=== PATIENT | female | born 1995 | race Caucasian/White ===

== ENCOUNTER 2019-08-12 17:21 | Emergency (ER) | payer BC ==
[2019-08-12] MEDS ORDERED: Ketorolac 60 MG/2 ML SDV IM ONE (18:08)
[2019-08-12] MEDS ORDERED: Cyclobenzaprine 10 MG Tab PO ONE (18:08)
--- NOTE | 2019-08-12 18:13 | EDM.PDOC ---
ED HPI GENERAL MEDICAL PROBLEM - General Chief Complaint: Back Pain or Injury Stated Complaint: LOWER BACK PAIN Time Seen by Provider: 08/12/19 17:58 Source of Information: Reports: Patient History Limitations: Reports: No Limitations - History of Present Illness INITIAL COMMENTS - FREE TEXT/NARRATIVE: Patient is a 23-year-old female who presents with acute low back pain. She states that she was lifting weights. She had squatted down to begin to lift up the bar when she felt a sharp stabbing pain in her right lower back. She was not actively lifting at the time of the injury. She denies any radiation of pain down her legs. Denies any bowel or bladder dysfunction. She states she has had injury similar to this in the past and was told that her "disc was overlapping her tailbone ". She states that she was told that if the injury should occur again, she would need surgery. Right Lower Back Pain Score (Numeric/FACES): 10 - Related Data Allergies Allergy/AdvReac Type Severity Reaction Status Date / Time No Known Allergies Allergy Verified 08/12/19 17:31 Home Meds: Home Meds Cyclobenzaprine [Flexeril] 5 mg PO TID PRN #15 tab 08/12/19 [Rx] Naproxen [Naprosyn] 500 mg PO Q12HR #10 tab 08/12/19 [Rx] Past Medical History - Past Health History Medical/Surgical History: Denies Medical/Surgical History Social & Family History - Tobacco Use Smoking Status *Q: Never Smoker - Caffeine Use Caffeine Use: Reports: None ED ROS GENERAL - Review of Systems Review Of Systems: Comprehensive ROS is negative, except as noted in HPI. ED EXAM,LOWER BACK PAIN/INJURY - Physical Exam Exam: See Below Exam Limited By: No Limitations General Appearance: Alert, WD/WN, No Apparent Distress Respiratory/Chest: No Respiratory Distress, Lungs Clear, Normal Breath Sounds, No Accessory Muscle Use, Chest Non-Tender Cardiovascular: Normal Peripheral Pulses, Regular Rate, Rhythm, No Edema, No Gallop, No JVD, No Murmur, No Rub Back Exam: Normal Inspection, Paraspinal Tenderness (Right lateral of L3-L5), Vertebral Tenderness (L3-L5) Neurological: Alert, Normal Mood/Affect, Normal Dorsiflexion, CN II-XII Intact, Normal Plantar Flexion, Normal Gait, Normal Reflexes, No Motor/Sensory Deficits , Oriented x 3 Psychiatric: Normal Affect, Normal Mood Skin Exam: Warm, Dry, Intact, Normal Color, No Rash Course - Vital Signs Last Recorded V/S: Last Vital Signs Temp 98.2 F 08/12/19 17:28 Pulse 103 H 08/12/19 17:28 Resp 20 08/12/19 17:28 BP 158/97 H 08/12/19 17:28 Pulse Ox 98 08/12/19 17:28 - Orders/Labs/Meds Meds: Medications Discontinued Medications Generic Name Dose Route Start Last Admin Trade Name Freq PRN Reason Stop Dose Admin Cyclobenzaprine HCl 10 mg 08/12/19 18:08 08/12/19 18:13 Flexeril PO 08/12/19 18:09 10 mg ONETIME ONE Administration Ketorolac Tromethamine 60 mg 08/12/19 18:08 08/12/19 18:13 Toradol IM 08/12/19 18:09 60 mg ONETIME ONE Administration - Re-Assessments/Exams Free Text/Narrative Re-Assessment/Exam: 08/12/19 18:14 I have ordered x-rays of the lumbar spine. Patient has not taken anything for pain thus far today. We will give her Toradol 60 mg IM as well as Flexeril. 08/12/19 19:58 Patient had significant relief of symptoms after the Toradol and Flexeril. X- rays were negative for any acute abnormalities. We will discharge her home with a prescription for Naprosyn and Flexeril. Recommend that if her pain is not improving by the end of the week that she follow-up in the clinic to discuss an outpatient MRI. Discharge instructions as documented. Departure - Departure Time of Disposition: 19:59 Disposition: Home, Self-Care 01 Condition: Good Clinical Impression: Lumbar strain Qualifiers: Encounter type: initial encounter Qualified Code(s): S39.012A - Strain of muscle, fascia and tendon of lower back, initial encounter - Discharge Information *PRESCRIPTION DRUG MONITORING PROGRAM REVIEWED*: No *COPY OF PRESCRIPTION DRUG MONITORING REPORT IN PATIENT YVONNE: No Prescriptions: Naproxen [Naprosyn] 500 mg PO Q12HR #10 tab Cyclobenzaprine [Flexeril] 5 mg PO TID PRN #15 tab PRN Reason: Muscle Spasm Instructions: Lumbosacral Strain Referrals: Jane Mejia PA-C [Primary Care Provider] - Forms: ED Department Discharge Additional Instructions: Was seen in the emergency department today for low back pain that occurred while lifting weights. X-rays were completed of your spine and found to be negative for any fractures or other abnormalities. While in the ER you received a dose of Toradol and Flexeril which she stated did improve your symptoms. A prescription for Naprosyn and Flexeril has been sent to clinic pharmacy. Use this medication as prescribed. You may also ice over your low back as needed for the next few days. If you are still having significant pain by the end of next week, I would recommend that you follow-up with your primary care provider to discuss the potential of an outpatient MRI. Return to the ER as needed. Sepsis Event Note - Evaluation Sepsis Screening Result: No Definite Risk - Focused Exam Vital Signs: Vital Signs Temp Pulse Resp BP Pulse Ox 08/12/19 17:28 98.2 F 103 H 20 158/97 H 98 Date Exam was Performed: 08/12/19 Time Exam was Performed: 19:58
--- NOTE | 2019-08-12 19:12 | CR ---
Lumbar spine: AP and lateral views of the lumbar spine were obtained. Comparison: Prior lumbar spine study of 01/03/18. Slight anterior wedging is noted of T11. This appears to be similar to prior study but better seen currently. 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 Minimal spondylolisthesis is seen. These findings appear to be stable. Minimal disc space narrowing at L4-5. Other disc spaces are maintained. Pedicles are intact. Transverse and spinous processes are intact. Minimal scoliosis is noted. Sacroiliac joints are within normal limits. Impression: 1. Findings as noted above. 2. No appreciable change is seen from previous study. Diagnostic code #2 This report was dictated in MDT
== END 2019-08-12 20:29 | disposition home or self-care (01) ==
LOC: JD.ED 17:21
DX: S39.012A Strain of muscle, fascia and tendon of lower back, initial encounter (principal); Z79.899 Other long term (current) drug therapy; X50.0XXA Overexertion from strenuous movement or load, initial encounter; Y92.89 Other specified places as the place of occurrence of the external cause; Y99.0 Civilian activity done for income or pay
CPT/HCPCS: 72100; 96372; 99283; A9270; J1885

== ENCOUNTER 2024-01-19 08:45 | Emergency (ER) | payer BC ==
[2024-01-19 10:29] LABS: HEMATOCRIT 43.9 % (37.0-47.0); HEMOGLOBIN 15.2 gm/dl (12.0-16.0); MEAN CORPUSCULAR HEMOGLOBIN 32.8 pg (28.0-32.0); MEAN CORPUSCULAR HGB CONC 34.6 g/dl (32.0-36.0); MEAN CORPUSCULAR VOLUME 94.6 fl (83.0-99.0); MEAN PLATELET VOLUME 10.6 fl (9.4-12.3); PLATELET COUNT,PLT 190 K/mm3 (150-400); RED BLOOD CELL COUNT 4.64 M/mm3 (4.10-5.30); WHITE BLOOD CELL COUNT,WBC 7.94 K/mm3 (3.9-11.3)
[2024-01-19 10:46] LABS: INR 1.03; PROTHROMBIN TIME 10.9 SECONDS (9.7-12.0)
[2024-01-19 10:50] LABS: A/G RATIO 0.9 (1-2); ALBUMIN 3.6 g/dl (3.4-5.0); ANION GAP 14.4 (5-15); BILIRUBIN TOTAL 0.4 mg/dL (0.2-1.0); BUN/CREATININE RATIO 21.3 (14-18); C-REACTIVE PROTEIN 11.23 mg/dL (<0.30); CALCIUM 8.8 mg/dL (8.5-10.1); CREATININE 0.8 mg/dL (0.55-1.02); EST CRCL DRUG DOSING (CG) 91.21 mL/min; POTASSIUM,K 3.4 mEq/L (3.5-5.1); PROTEIN TOTAL,TP 7.8 g/dl (6.4-8.2)
[2024-01-19 10:55] LABS: LACTIC ACID 0.7 mmol/L (0.4-2.0)
[2024-01-19 11:07] LABS: BAND PERCENT MAN 1 % (0-10); BASOPHILS PERCENT MAN 0 (0.1-1.2); EOSINOPHILS PERCENT MAN 1 % (0.7-5.8); LYMPHOCYTES % ATYPICAL MANUAL 0 %; LYMPHOCYTES PERCENT MAN 29 % (20-40); MONOCYTES PERCENT MAN 6 % (2-10)
[2024-01-19 11:08] LABS: PLATELET COUNT ESTIMATE ADEQUATE
[2024-01-19] MEDS ORDERED: cefTRIAXone 1 GM, Lidocaine 1% 2.1 ML IM ONE (11:11)
== END 2024-01-19 11:25 | disposition home or self-care (01) ==
LOC: JD.ED 08:45
DX: J02.8 Acute pharyngitis due to other specified organisms (principal); Z86.16 Personal history of COVID-19; F17.210 Nicotine dependence, cigarettes, uncomplicated; Z79.899 Other long term (current) drug therapy
CPT/HCPCS: 36415; 71046; 71046-26; 80053; 83605; 85007; 85027; 85610; 86140; 87040; 99283

== ENCOUNTER 2024-12-30 21:04 | Emergency (ER) | payer BC ==
[2024-12-30 22:18] LABS: BASOPHILS ABSOLUTE AUTO 0.0 K/mm3 (0.0-0.2); BASOPHILS PERCENT AUTO 0.1 % (0.0-1.0); EOSINOPHILS ABSOLUTE AUTO 0.0 K/mm3 (0.0-0.4); EOSINOPHILS PERCENT AUTO 0.1 % (0.0-6.0); IMMATURE GRAN ABSOLUTE AUTO 0.03 K/mm3 (0.00-0.05); IMMATURE GRAN PERCENT AUTO 0.3 % (0.0-0.4); LYMPHOCYTES ABSOLUTE AUTO 1.4 K/mm3 (1.0-4.8); LYMPHOCYTES PERCENT AUTO 13.5 % (24.0-44.0); MEAN PLATELET VOLUME 10.4 fl (9.4-12.3); MONOCYTES ABSOLUTE AUTO 0.5 K/mm3 (0.0-0.8); MONOCYTES PERCENT AUTO 5.0 % (0.0-8.0); NEUTROPHILS ABSOLUTE AUTO 8.4 K/mm3 (1.8-7.7); NEUTROPHILS PERCENT AUTO 81.0 % (41.0-71.0); NRBC ABSOLUTE 0.00 (0.00-0.02); NRBC PERCENT 0.0 % (0.0-0.2); PLATELET COUNT,PLT 211 K/mm3 (150-400); RED BLOOD CELL COUNT 4.66 M/mm3 (4.10-5.30); WHITE BLOOD CELL COUNT,WBC 10.33 K/mm3 (3.9-11.3)
[2024-12-30] MEDS ORDERED: Sodium Chloride 0.9% 10 ML Syringe FLUSH PRN (22:35)
[2024-12-30] MEDS: Ondansetron 4 MG/2 ML SDV IVPUSH ONE (22:42)
[2024-12-30] MEDS: Ketorolac 30 MG/ML SDV IVPUSH ONE (22:42)
[2024-12-30 22:53] LABS: APPEARANCE,URINE CLEAR (Clear); GLUCOSE,URINE NEGATIVE (Negative); OCCULT BLOOD,URINE NEGATIVE (Negative)
[2024-12-30] MEDS: Sodium Chloride 0.9% 10 ML Syringe FLUSH PRN (23:01)
[2024-12-30] MEDS: Iopamidol 612 MG/ML 100 ML Bottle IVPUSH ONE (23:01)
[2024-12-30 23:10] LABS: A/G RATIO 1.0 (1-2); ALANINE AMINOTRANSFERASE,ALT 30.0 U/L (14-59); ASPARTATE AMNIOTRANSFERASE,AST 20.0 U/L (15-37); BILIRUBIN TOTAL 0.5 mg/dL (0.2-1.0); BLOOD UREA NITROGEN,BUN 17.0 mg/dL (7-18); CARBON DIOXIDE,CO2 24.0 mEq/L (21-32); CHLORIDE,CL 105.0 mEq/L (98-107); CREATININE 0.8 mg/dL (0.55-1.02); EST CRCL DRUG DOSING (CG) 94.21 mL/min; ESTIMATED GFR 103.0 mL/min (>60); GLUCOSE RANDOM 115.0 mg/dL (70-99); POTASSIUM,K 4.4 mEq/L (3.5-5.1); PROTEIN TOTAL,TP 7.5 g/dl (6.4-8.2); SODIUM,NA 140.0 mEq/L (136-145)
== END 2024-12-31 01:00 | disposition home or self-care (01) ==
LOC: JD.ED 21:04
DX: R10.11 Right upper quadrant pain (principal); R10.13 Epigastric pain; F17.210 Nicotine dependence, cigarettes, uncomplicated; Z79.899 Other long term (current) drug therapy
CPT/HCPCS: 36415; 74177; 74177-26; 80053; 81001; 83690; 83735; 84703; 85025; 96361; 96374; 96375; 99284-25; J1885; J2405; J7030; Q9967